=== PATIENT | female | born 1975 | race Caucasian/White ===

== ENCOUNTER 2018-02-18 21:22 | Emergency (ER) | payer OTHER, MEDICAID ==
[2018-02-18 21:43] VITALS: BMI 25.2
[2018-02-18 21:54] VITALS: RESP 18; TEMP 98.4; O2SAT 100
[2018-02-18] MEDS ORDERED: TDAP Vaccine 0.5 mL Syr IM ONE (22:30)
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
[2018-02-19 01:32] VITALS: BP 131/67; PULSE 75
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
== END 2018-02-19 01:00 | disposition home or self-care (01) ==
LOC: ED 21:22 → MERGE 21:22 → ED 02-19 01:00
DX: S02.2XXA Fracture of nasal bones, initial encounter for closed fracture (principal); S80.12XA Contusion of left lower leg, initial encounter; S09.93XA Unspecified injury of face, initial encounter; V49.9XXA Car occupant (driver) (passenger) injured in unspecified traffic accident, initial encounter; Z23 Encounter for immunization

== ENCOUNTER 2018-06-12 19:15 | Emergency (ER) | payer MEDICAID, OTHER ==
[2018-06-12 19:15] VITALS: BMI 25.2
[2018-06-12 19:39] VITALS: RESP 17
[2018-06-12] MEDS ORDERED: Oxycodone/Acetaminophen 5/325 mg Tab PO STA (19:40)
--- NOTE | 2018-06-12 19:44 | ED PDOC ---
Arrival/HPI - General Chief Complaint: Dental Pain Time Seen by Provider: 06/12/18 19:17 Historian: Patient - History of Present Illness Narrative History of Present Illness (Text): 06/12/18 19:41 42 y/o female, no significant pmh, nkda, c/o lt. lower molar pain x 2-3 days with no fall or trauma. Aching pain, aggravated by chewing and biting, no jaw or chin swelling, no tongue swelling, no difficulty eating or drinking, no night sweat, no rash, no dizziness, no other medical or psychological complaints. Past Medical History - Provider Review Nursing Documentation Reviewed: Yes - Infectious Disease Hx of Infectious Diseases: None - Cardiac Hx Cardiac Disorders: No - Pulmonary Hx Respiratory Disorders: No - Psychiatric Hx Substance Use: No - Anesthesia Hx Anesthesia: No Family/Social History - Physician Review Nursing Documentation Reviewed: Yes Family/Social History: Unknown Family HX Smoking Status: Never Smoked Hx Alcohol Use: No Hx Substance Use: No Allergies/Home Meds Allergies/Adverse Reactions: Allergies No Known Allergies Allergy (Verified 06/12/18 19:39) Review of Systems - Review of Systems Constitutional: absent: Fatigue, Fevers Eyes: absent: Vision Changes ENT: Other (+dental pain). absent: Hearing Changes Respiratory: absent: SOB, Cough Cardiovascular: absent: Chest Pain Gastrointestinal: absent: Abdominal Pain, Diarrhea, Nausea, Vomiting Skin: absent: Rash, Pruritis Neurological: absent: Headache, Dizziness Psychiatric: absent: Anxiety, Depression, Suicidal Ideation Physical Exam Vital Signs Reviewed: Yes Vital Signs Temp Pulse Resp BP Pulse Ox 06/12/18 19:39 97.9 F 69 17 132/88 100 Temperature: Afebrile Blood Pressure: Normal Pulse: Regular Respiratory Rate: Normal Appearance: Positive for: Well-Appearing, Non-Toxic, Comfortable Pain Distress: Moderate Mental Status: Positive for: Alert and Oriented X 3 - Systems Exam Head: Present: Atraumatic, Normocephalic Pupils: Present: PERRL Extroacular Muscles: Present: EOMI Conjunctiva: Present: Normal Ears: Present: NORMAL TM, Normal Canal. No: Erythema Mouth: Present: Moist Mucous Membranes, Normal Lips, Normal Tounge, Other (lt. lower molars noted to have dental caries and no gingival abscess/gingivitis, no chin or tongue swelling. ). No: Drooling, Trismus Nose (External): Present: Atraumatic. No: Abrasion, Contusion, Laceration Nose (Internal): Present: Normal Inspection, No Active Bleeding. No: Rhinorrhea, Septal Hematoma, Epistaxis Neck: Present: Normal Range of Motion. No: Meningeal Signs, MIDLINE TENDERNESS, Paraspinal Tenderness, Lymphadenopathy, Trachea Midline Respiratory/Chest: Present: Clear to Auscultation, Good Air Exchange. No: Respiratory Distress, Accessory Muscle Use Cardiovascular: Present: Regular Rate and Rhythm, Normal S1, S2. No: Murmurs Abdomen: No: Tenderness, Distention, Peritoneal Signs Back: Present: Normal Inspection. No: CVA Tenderness, Midline Tenderness Upper Extremity: Present: Normal Inspection. No: Cyanosis, Edema Lower Extremity: Present: Normal Inspection. No: Edema Neurological: Present: GCS=15, CN II-XII Intact, Speech Normal, Motor Func Grossly Intact, Gait Normal, Memory Normal Skin: Present: Warm, Dry, Normal Color. No: Rashes Psychiatric: Present: Alert, Oriented x 3, Normal Insight, Normal Concentration Medical Decision Making ED Course and Treatment: 06/12/18 19:43 -toradol/percocet/amoxicillin -observe and reassess 06/12/18 20:06 -Urine hcg is negative -Pt. request to be discharged home and not driving home. -Discharge home with amoxicillin, duexis, soft food diet, follow up with your own pmd and dentist within 2 days, return to the ER for any new or worsening signs or symptoms. - PA / STAMPING MACHINE OPERATOR / Resident Statement MD/DO has reviewed & agrees with the documentation as recorded. Disposition/Present on Arrival - Present on Arrival Any Indicators Present on Arrival: No History of DVT/PE: No History of Uncontrolled Diabetes: No Urinary Catheter: No History of Decub. Ulcer: No History Surgical Site Infection Following: None - Disposition Have Diagnosis and Disposition been Completed?: Yes Diagnosis: Dental caries, Pain, dental Disposition: HOME/ ROUTINE Disposition Time: 20:07 Patient Plan: Discharge Patient Problems: Current Active Problems Problem Status Onset Dental caries Acute Pain, dental Acute Condition: IMPROVED Additional Instructions: -Discharge home with amoxicillin, duexis, soft food diet, follow up with your own pmd and dentist within 2 days, return to the ER for any new or worsening signs or symptoms. Prescriptions: Amoxicillin 875 mg PO BID #20 tab Ibuprofen/Famotidine [Duexis 26.6 mg-800 mg] 1 tab PO TID PRN #21 tab PRN Reason: Other Referrals: Wendy Matt MD [Primary Care Provider] - Follow up with primary Forms: [employer] ([place] African), WORK NOTE
[2018-06-12 20:17] VITALS: BP 128/77; PULSE 77; TEMP 97.8; O2SAT 99
== END 2018-06-12 20:17 | disposition home or self-care (01) ==
LOC: ED 19:15
DX: K02.9 Dental caries, unspecified (principal); K08.89 Other specified disorders of teeth and supporting structures